=== PATIENT | male | born 1995 | race Caucasian/White ===

== ENCOUNTER 2019-02-10 11:38 | Emergency (ER) | payer BC ==
--- NOTE | 2019-02-10 13:05 | ED ---
Shortness of Breath - HPI Summary HPI Summary: Patient is a 23-year-old male who presents with SOB that awakens him from sleep for the past 2 weeks. This has occurred every night. States he has "discomfort" when taking deep breath. SOB is relieved when the patient sits up or walks around for a few minutes, and he is able to fall back asleep. Sometimes this occurs multiple times per night. Patient is simultaneously experiencing back pain that is present only during these episodes. He states that the pain is located between the scapula. Was seeing chiropractor for this pain with no relief. Called PCP because no improvement, who sent him to the ED. Asymptomatic at this time. Denies chest pain, cough, hemoptysis. Denies fever. Denies N/V/D or abdominal pain. Patient denies SOB or dyspnea on exertion during daytime. Denies recent illness. - History of Current Complaint Chief Complaint: EDGeneral Time Seen by Provider: 02/10/19 12:29 Hx Obtained From: Patient Timing: Intermittent Episodes Lasting: - minutes Current Severity: None Dyspnea At: Rest Aggravating Factors: Nothing Alleviating Factors: Upright Position Associated Signs & Symptoms: Negative - Risk Factors Pulmonary Embolism: Negative Cardiac: Negative Pseudomonas: Negative Tuberculosis: Negative - Allergy/Home Medications Allergies/Adverse Reactions: Allergies Allergy/AdvReac Type Severity Reaction Status Date / Time No Known Allergies Allergy Verified 02/10/19 11:54 Home Medications: Home Medications NK [No Home Medications Reported] 02/10/19 [History Confirmed 02/10/19] PMH/Surg Hx/FS Hx/Imm Hx Infectious Disease History: Yes Infectious Disease History: Denies: Traveled Outside the [place] in Last 30 Days - Social History Alcohol Use: Occasionally Substance Use Type: Reports: Marijuana Smoking Status (MU): Never Smoked Tobacco Review of Systems Constitutional: Negative Negative: Fever Eyes: Negative ENT: Negative Cardiovascular: Negative Negative: Palpitations, Chest Pain Gastrointestinal: Negative Negative: Abdominal Pain, Vomiting, Diarrhea, Nausea Genitourinary: Negative Positive: no symptoms reported. Negative: burning, dysuria, frequency Musculoskeletal: Negative Positive: Myalgia - Upper back pain. Negative: Arthralgia Skin: Negative Neurological: Negative Psychological: Normal All Other Systems Reviewed And Are Negative: Yes Physical Exam Triage Information Reviewed: Yes Vital Signs On Initial Exam: Initial Vitals Temp Pulse Resp BP Pulse Ox 98.4 F 68 16 148/96 99 02/10/19 11:50 02/10/19 11:50 02/10/19 11:50 02/10/19 11:50 02/10/19 11:50 Vital Signs Reviewed: Yes Skin: Positive: Warm, Skin Color Reflects Adequate Perfusion, Dry Head/Face: Positive: Normal Head/Face Inspection Eyes: Positive: Normal, EOMI, RADHA, Conjunctiva Clear ENT: Positive: Normal ENT inspection, Hearing grossly normal Neck: Positive: Supple, Nontender, No Lymphadenopathy Respiratory/Lung Sounds: Positive: Clear to Auscultation, Breath Sounds Present. Negative: Rales, Rhonchi, Tracheal Deviation, Wheezes Cardiovascular: Positive: Normal, RRR, Pulses are Symmetrical in both Upper and Lower Extremities, S1, S2. Negative: Murmur, Rub, Tachycardia Abdomen Description: Positive: Nontender, No Organomegaly, Soft Bowel Sounds: Positive: Present Musculoskeletal: Positive: Normal, Strength/ROM Intact, Pain @ - tenderness mid thoracic region, muscular Neurological: Positive: Normal, Sensory/Motor Intact Psychiatric: Positive: Normal Procedures - Sedation Patient Received Moderate/Deep Sedation with Procedure: No Diagnostics - Vital Signs Vital Signs Temp Pulse Resp BP Pulse Ox 02/10/19 11:50 98.4 F 68 16 148/96 99 - Laboratory Result Diagrams: 02/10/19 13:08 Lab Statement: Any lab studies that have been ordered have been reviewed, and results considered in the medical decision making process. Course/Dx - Course Course Of Treatment: 23-year-old male who presents with nightly episodes of SOB that awakens him from sleep. Associated with back pain between the scapula. Relieved by being upright/walking. Lungs CTA B/L. Regular rate and rhythm. EKG sinus bradycardia iwth a rate of 56 . D-dimer <200. CXR: negative for cardiopulmonay disease. No acute distress. Denies pain currently. Labs otherwise normal. On physical exam, patient has a tightness feeling to his mid upper back worse with movement and better with rest. Dx with MSK injury and at this time, low risk for PE, pulm or other cardiac issue. Pt dc in good condition. Will f/u with PCP. - Diagnoses Differential Diagnosis/HQI/PQRI: Positive: Chest Wall Pain, Pulmonary Embolism, Other - muscle strain, PE Provider Diagnoses: Musculoskeletal pain Discharge ED - Sign-Out/Discharge Documenting (check all that apply): Patient Departure - Discharge Plan Condition: Stable Disposition: HOME Patient Education Materials: Musculoskeletal Pain (ED) Referrals: No Primary Care Phys,NOPCP [Primary Care Provider] - Additional Instructions: Ibuprofen 600mg three times daily Moist heat to the area Gentle stretches Follow up with PCP this week - Billing Disposition and Condition Condition: STABLE Disposition: Home
[2019-02-10 13:16] LABS: ABS Eosinophils 0.3 10^3/ul (0-0.6); ABS Lymphocytes 2.1 10^3/ul (1.0-4.8); ABS Monocytes 0.5 10^3/ul (0-0.8); ABS Neutrophils 5.7 10^3/ul (1.5-7.7); Hematocrit 41 % (42-52); Hemoglobin 14.4 g/dL (14.0-18.0); Lymphocyte % 24.1 %; Mean Corpuscular HGB Conc 35 g/dL (31-36); Mean Corpuscular Hemoglobin 32 pg (27-31); Mean Corpuscular Volume 92 fL (80-94); Mean Platelet Volume 7.7 fL (7.4-10.4); Platelet Count 227 10^3/uL (150-450); Red Blood Count 4.46 10^6 /uL (4.18-5.48); Red Cell Distribution Width 13 % (10-15); White Blood Count 8.5 10^3/uL (3.5-10.8)
== END 2019-02-10 14:39 | disposition home or self-care (01) ==
LOC: ED 11:38
DX: M54.9 Dorsalgia, unspecified (principal)
CPT/HCPCS: 36415; 71046; 85025; 85379; 93005; 99282